=== PATIENT | male | born 1955 | race Caucasian/White ===

== ENCOUNTER 2024-01-08 09:40 | Day surgery (SDC) | payer MEDICARE, OTHER, SELFPAY ==
[2024-01-04 14:00] VITALS: BMI 27.8
--- NOTE | 2024-01-04 15:08 | P.CONAN_ITS ---
Documented by User: Danielle Cantu NP 01/04/24 15:09 HPI - Anesthesia Eval Consult details Narrative: 68yo M for Colonoscopy [facility] Past Medical History Medical History (Updated 01/04/24 @ 13:58 by Audrey Verde RN) First degree AV block Sleep apnea Elevated cholesterol HTN (hypertension) Lymphoma GERD (gastroesophageal reflux disease) Surgical History Surgical History (Updated 01/04/24 @ 13:58 by Audrey Verde RN) Hx of lumpectomy Hx of rotator cuff surgery History of esophagogastroduodenoscopy (EGD) H/O colonoscopy Social History Social History Patient Tobacco Use Status: Tobacco use Unknown Use of substances other than those prescribed or required for medical reasons: No Advance Directives: No Advance Directives Information Provided: Yes Advance Directives on File: No Meds Allergies Allergy/AdvReac Type Severity Reaction Status Date / Time No Known Allergies Allergy Verified 01/04/24 13:55 Home Medications ?Medication ?Instructions ?Recorded ?Confirmed ?Last Taken ?Type amlodipine 10 mg tablet 10 mg PO DAILY 01/04/24 01/04/24 01/08/24 History atenolol 25 mg tablet 25 mg PO DAILY 01/04/24 01/04/24 01/07/24 History irbesartan 300 mg tablet 300 mg PO DAILY 01/04/24 01/04/24 01/08/24 History omeprazole 20 mg capsule,delayed 20 mg PO DAILY 01/04/24 01/04/24 01/08/24 History release rosuvastatin 20 mg tablet 20 mg PO DAILY 01/04/24 01/04/24 01/08/24 History Exam Height,Weight and Vital Signs: Height 5 ft 8 in Weight 83.007 kg Assessment and Plan Assessment Anesthesia Assessment: Chart Reviewed Documented by User: Yancy Frausto MD 01/08/24 11:00 [facility] Past Medical History Medical History (Updated 01/04/24 @ 13:58 by Audrey Verde RN) First degree AV block Sleep apnea Elevated cholesterol HTN (hypertension) Lymphoma GERD (gastroesophageal reflux disease) Family History Family history of problems with anesthesia: No Surgical History Surgical History (Updated 01/04/24 @ 13:58 by Audrey Verde RN) Hx of lumpectomy Hx of rotator cuff surgery History of esophagogastroduodenoscopy (EGD) H/O colonoscopy History of Problems with Anesthesia: No Social History Social History Patient Tobacco Use Status: Tobacco use Unknown Use of substances other than those prescribed or required for medical reasons: No Advance Directives: No Advance Directives Information Provided: Yes Advance Directives on File: No Meds Allergies Allergy/AdvReac Type Severity Reaction Status Date / Time No Known Allergies Allergy Verified 01/04/24 13:55 Home Medications ?Medication ?Instructions ?Recorded ?Confirmed ?Last Taken ?Type amlodipine 10 mg tablet 10 mg PO DAILY 01/04/24 01/04/24 01/08/24 History atenolol 25 mg tablet 25 mg PO DAILY 01/04/24 01/04/24 01/07/24 History irbesartan 300 mg tablet 300 mg PO DAILY 01/04/24 01/04/24 01/08/24 History omeprazole 20 mg capsule,delayed 20 mg PO DAILY 01/04/24 01/04/24 01/08/24 History release rosuvastatin 20 mg tablet 20 mg PO DAILY 01/04/24 01/04/24 01/08/24 History Exam Airway Mallampati Class: II TM Dist: >3cm Assessment and Plan Assessment Anesthesia Assessment: Anesthesia Plan Discussed Final Anesthetic Review Family History of Problems with Anesthesia: No History of Problems with Anesthesia: No NPO: Yes ASA Class: III Final Preanesthetic Review: No Changes in Pt Med Stat, Meds/Allgs Chart Reviewed, Consent Obtained/Reviewed and Anes Risks/Benef Reviewed Patient Risk: Intermediate Procedure Risk: Low Anesthetic Plan Anesthetic Plan: TIVA Disposition: Standard PACU
--- NOTE | 2024-01-08 09:10 | PC.NURSE ---
called patient and left message pt arrival time [id number]
[2024-01-08 10:20] VITALS: BP 140/85; PULSE 56; RESP 20; TEMP 36.9; O2SAT 97
[2024-01-08] MEDS: Lactated Ringers 1,000 ML 100 ML IVCONT (10:37)
--- NOTE | 2024-01-08 11:01 | P.HPSUR_ITS ---
Pre-Procedural Eval Section A - 24 Hr Update-Section A only Date of Service: 01/08/24 Section B - Complete if H&P > 30 days Chief Complaint: Encounter for screening for malignant neoplasm of Details of Present Illness: see H&P no changes Relevant Family History (Specify if Yes): No Relevant Social History: None Present Medications: see Short Stay Collaborative assessment Medical History: No relevant PMH History of Previous Operations: No relevant previous surgery Allergies: Allergies Allergy/AdvReac Type Severity Reaction Status Date / Time No Known Allergies Allergy Verified 01/04/24 13:55 Review of Systems Sugical H&P ROS: Negative: Constitution, Cardiovascular, Respiratory, Neurological, Psychiatric, Hem-Onc, Allergic/Immunologic, Gastrointestinal, Genitourinary, Musculoskeletal, Integumentary, Endocrine and Eyes/Ears/No se/Throat Exam Surgical H&P Exam: Normal: HEENT, Normal: Heart, Normal: Lungs, Normal: Extremities, Normal: Abdomen, Normal: Skin and Normal: Neurological Plan Diagnosis/Plan: Unchanged I have reviewed the history and physical and performed a pertinent physical examination on my patient. No changes have occurred unless specified. Time Spent With Patient Time: Total time managing care of this patient today ____ minutes.
[2024-01-08 11:37] VITALS: BP 121/64; PULSE 61; RESP 16; TEMP 36.2; O2SAT 96
[2024-01-08 11:53] VITALS: BP 116/70; PULSE 57; RESP 18; TEMP 36.2; O2SAT 96
--- NOTE | 2024-01-08 13:15 | OP_ITS ---
DATE OF SERVICE: 01/08/2024 SURGEON: Chano Perez MD INDICATIONS: Colon cancer screening. PREOPERATIVE DIAGNOSIS: POSTOPERATIVE DIAGNOSIS: PROCEDURE PERFORMED: Colonoscopy to the terminal ileum with biopsy. ESTIMATED BLOOD LOSS: COMPLICATIONS: ANESTHESIA: Monitored anesthesia care. ASSISTANTS: SPECIMENS: DESCRIPTION OF PROCEDURE: A history and physical was performed. The risks and benefits of the procedure were explained to the patient and informed consent was obtained. The patient was placed in the left lateral decubitus position. A digital rectal exam was performed and was found to be normal. The Olympus pediatric video colonoscope was introduced into the rectum and advanced to the cecum. The cecum was identified by transillumination, palpation, and identification of ileocecal valve. Examination was performed and the scope was removed. He tolerated the procedure well and was taken to recovery area in stable condition. FINDINGS: The terminal ileum was normal. The visualized colonic mucosa was normal. The quality of the prep was good. In the cecum, was a less than 5 mm polyp, which was removed with biopsy forceps. No other polyps were identified. In the right colon at 85 cm a 2 cm lipoma was identified and biopsied. No other polyps were identified. Retroflexed examination was normal. There was mild sigmoid diverticulosis. IMPRESSION: Colon polyp. RECOMMENDATION: Follow up the biopsy results. MD NAGI Thibodeaux/ADI / [id number] MTDD
== END 2024-01-08 12:48 | disposition home or self-care (01) ==
PROVIDERS: PCP Internal Medicine Infectious Disease; Visit Provider Internal Medicine Gastroenterology
PROC: 0DJD8ZZ Inspection of Lower Intestinal Tract, Via Natural or Artificial Opening Endoscopic (ICD-10-PCS; CPT 45378; principal; 2024-01-08 10:50)
DX: Z12.11 Encounter for screening for malignant neoplasm of colon (principal); K63.5 Polyp of colon; D17.79 Benign lipomatous neoplasm of other sites; K57.30 Diverticulosis of large intestine without perforation or abscess without bleeding; K21.9 Gastro-esophageal reflux disease without esophagitis
CPT/HCPCS: 45380; 88304; 88305; J2704